=== PATIENT | male | born 1995 | race Caucasian/White ===

== ENCOUNTER 2022-05-04 07:26 | Emergency (ER) | payer SELFPAY ==
[2022-05-04] VITALS (7 sets, daily range): BP systolic 121–136; BP diastolic 70–84
[~2022-05-04] VITALS: Ht 190.5 cm; Wt 72.7 kg
[2022-05-04 08:45] LABS: ALBUMIN 4.6 g/dL (3.2-5.0); ALKALINE PHOSPHATASE 100 u/l (38-126); ANION GAP 16 (6-22 (CALC)); BILIRUBIN, TOTAL 1.4 mg/dL (0.0-1.4); BUN 12 mg/dL (9-20); BUN/CREATININE RATIO 15 (12-20 (CALC)); CARBON DIOXIDE 24 mmol/l (22-30); CHLORIDE 104 mmol/l (95-108); CREATININE 0.8 mg/dL (0.7-1.3); GFR FOR AFR.AMER. > 60 ML/MIN (>=60 (CALC)); GFR OTHER RACES > 60 ML/MIN (>=60 (CALC)); SGOT/AST 26 u/l (17-59); SODIUM 141 mmol/l (137-146)
[2022-05-04 08:53] LABS: HEMATOCRIT 40.8 % (39.0-50.0); HEMOGLOBIN 14.1 g/dl (14.0-18.0); IMMATURE GRANULOCYTES 0.1 % (0.0-5.0); MEAN CELL VOLUME 87.7 fL CALC (80.0-100.0); MEAN CORPUSCULAR HGB 30.3 pG CALC (26.0-32.0); MEAN CORPUSCULAR HGB CONC 34.6 g/dL CAL (32.0-36.0); NEUT# 8.53 thou/uL (1.82-7.42); RED BLOOD COUNT 4.65 mill/uL (4.70-6.10)
== END 2022-05-04 10:20 | disposition short-term general hospital (02) | DRG 563 ==
LOC: ED 07:26
PROVIDERS: Family Medicine
DX: S82.142A Displaced bicondylar fracture of left tibia, initial encounter for closed fracture (principal); W17.89XA Other fall from one level to another, initial encounter; Y93.51 Activity, roller skating (inline) and skateboarding; Z20.822 Contact with and (suspected) exposure to COVID-19

== ENCOUNTER 2022-05-07 11:34 | Emergency (ER) | payer SELFPAY ==
[~2022-05-07] VITALS: Ht 190.5 cm; Wt 75.0 kg
[2022-05-07 13:07] VITALS: BP 141/66
[2022-05-07 13:30] VITALS: BP 126/79
[2022-05-07] MEDS ORDERED: PERCOCET 5/321 COMBO PO (13:30)
[2022-05-07] MEDS ORDERED: NAPROXEN500 MG PO (13:30)
[2022-05-07 13:43] VITALS: BP 126/79
== END 2022-05-07 13:44 | disposition home or self-care (01) | DRG 561 ==
LOC: ED 11:34
DX: S82.142D Displaced bicondylar fracture of left tibia, subsequent encounter for closed fracture with routine healing (principal); F17.210 Nicotine dependence, cigarettes, uncomplicated; X58.XXXD Exposure to other specified factors, subsequent encounter; Z91.19 Patient's noncompliance with other medical treatment and regimen

== ENCOUNTER 2022-07-06 09:02 | Emergency (ER) | payer SELFPAY ==
[~2022-07-06 09:02] MED LIST: NAPROXEN500 MG PO; PERCOCET 5/321 COMBO PO
== END 2022-07-06 09:38 | disposition left against medical advice (07) | DRG 951 ==
LOC: ED 09:02 → LWOBS 09:38 → ED 09:38
DX: Z53.21 Procedure and treatment not carried out due to patient leaving prior to being seen by health care provider (principal)

== ENCOUNTER 2022-11-28 15:20 | Emergency (ER) | payer SELFPAY ==
[~2022-11-28] VITALS: Ht 190.5 cm; Wt 81.8 kg
[2022-11-28] VITALS (7 sets, daily range): BP systolic 127–132; BP diastolic 76–92
[2022-11-28 17:14] LABS: BASO% 0.5 % (0-3); EOS% 1.8 % (0-8); HEMOGLOBIN 13.7 g/dl (14.0-18.0); IMMATURE GRANULOCYTES 0.1 % (0.0-5.0); LYMPH% 27.9 % (15-41); MEAN CELL VOLUME 89.3 fL CALC (80.0-100.0); MEAN CORPUSCULAR HGB 29.8 pG CALC (26.0-32.0); MEAN CORPUSCULAR HGB CONC 33.4 g/dL CAL (32.0-36.0); MONO% 8.5 % (2-13); NEUT# 5.2 thou/uL (1.82-7.42); NEUT% 61.2 % (42-76); RED BLOOD COUNT 4.59 mill/uL (4.70-6.10); RED CELL DISTRI WIDTH 14.2 % (11.5-15.5)
[2022-11-28 17:26] LABS: ALBUMIN 4.6 g/dL (3.2-5.0); ALKALINE PHOSPHATASE 93 u/l (38-126); ANION GAP 16 (6-22 (CALC)); BUN 8 mg/dL (9-20); BUN/CREATININE RATIO 9 (12-20 (CALC)); CARBON DIOXIDE 23 mmol/l (22-30); CHLORIDE 108 mmol/l (95-108); CREATININE 0.8 mg/dL (0.7-1.3); GFR FOR AFR.AMER. > 60 ML/MIN (>=60 (CALC)); GFR OTHER RACES > 60 ML/MIN (>=60 (CALC)); POTASSIUM 3.6 mmol/l (3.5-5.1); SGOT/AST 32 u/l (17-59); SODIUM 144 mmol/l (137-146); TOTAL PROTEIN 7.7 g/dL (6.3-8.2)
[2022-11-28 17:27] LABS: BILIRUBIN, TOTAL 0.3 mg/dL (0.2-1.3)
[2022-11-28] MEDS ORDERED: ULTRAM50 MG PO (18:32)
== END 2022-11-28 19:14 | disposition home or self-care (01) | DRG 605 ==
LOC: ED 15:20
PROVIDERS: Family Medicine
DX: S00.83XA Contusion of other part of head, initial encounter (principal); F17.200 Nicotine dependence, unspecified, uncomplicated; Y04.2XXA Assault by strike against or bumped into by another person, initial encounter; Y92.410 Unspecified street and highway as the place of occurrence of the external cause

== ENCOUNTER 2023-04-30 13:08 | Emergency (ER) | payer SELFPAY ==
[2023-04-30] VITALS (17 sets, daily range): BP systolic 85–101; BP diastolic 39–56
[~2023-04-30] VITALS: Ht 188 cm; Wt 78.0 kg
[~2023-04-30 13:08] MED LIST changes: +METHOCARBAMOL500 MG PO; +ULTRAM50 MG PO
[2023-04-30 13:50] LABS: ALBUMIN 4.1 g/dL (3.2-5.0); ALKALINE PHOSPHATASE 93 u/l (38-126); BUN 11 mg/dL (9-20); BUN/CREATININE RATIO 12 (12-20 (CALC)); CHLORIDE 106 mmol/l (95-108); CREATININE 0.9 mg/dL (0.7-1.3); GFR FOR AFR.AMER. > 60 ML/MIN (>=60 (CALC)); GFR OTHER RACES > 60 ML/MIN (>=60 (CALC)); POTASSIUM 3.4 mmol/l (3.5-5.1); SGOT/AST 28 u/l (17-59); TOTAL PROTEIN 7.2 g/dL (6.3-8.2)
[2023-04-30 13:51] LABS: ANION GAP 13 (6-22 (CALC)); CARBON DIOXIDE 18 mmol/l (22-30); SODIUM 134 mmol/l (137-146)
[2023-04-30 13:52] LABS: BASO% 0.4 % (0-3); EOS% 0.6 % (0-8); HEMATOCRIT 40.1 % (39.0-50.0); HEMOGLOBIN 13.5 g/dl (14.0-18.0); IMMATURE GRANULOCYTES 0.1 % (0.0-5.0); LYMPH% 3.6 % (15-41); MEAN CELL VOLUME 90.3 fL CALC (80.0-100.0); MEAN CORPUSCULAR HGB 30.4 pG CALC (26.0-32.0); MEAN CORPUSCULAR HGB CONC 33.7 g/dL CAL (32.0-36.0); MONO% 11.4 % (2-13); NEUT# 5.81 thou/uL (1.82-7.42); NEUT% 83.9 % (42-76); RED BLOOD COUNT 4.44 mill/uL (4.70-6.10)
[2023-04-30] MEDS ORDERED: ZOFRAN4 MG/TAB PO (14:27)
[2023-04-30] MEDS ORDERED: PAXLOVID PO (14:27)
== END 2023-04-30 17:00 | disposition home or self-care (01) | DRG 179 ==
LOC: ED 13:08
PROVIDERS: Family Medicine
DX: U07.1 COVID-19 (principal); R52 Pain, unspecified; R51.9 Headache, unspecified; R53.83 Other fatigue; F17.200 Nicotine dependence, unspecified, uncomplicated

== ENCOUNTER 2023-09-08 01:05 | Emergency (ER) | payer SELFPAY ==
[~2023-09-08 01:05] MED LIST changes: +PAXLOVID PO; +ZOFRAN4 MG/TAB PO
== END 2023-09-08 02:00 | disposition left against medical advice (07) | DRG 951 ==
LOC: ED 01:05 → LWOBS 02:00
DX: Z53.21 Procedure and treatment not carried out due to patient leaving prior to being seen by health care provider (principal)

== ENCOUNTER 2024-08-21 09:45 | Emergency (ER) | payer SELFPAY ==
[2024-08-21] VITALS (9 sets, daily range): BP systolic 120–150; BP diastolic 80–98
[~2024-08-21] VITALS: Ht 188 cm; Wt 77.2 kg
[2024-08-21] MEDS ORDERED: Diph, Acellular Pertussis, Tet 0.5 ML/VIAL (Tdap) SDV IM ONE (10:00)
== END 2024-08-21 12:01 | disposition home or self-care (01) | DRG 605 ==
LOC: ED 09:45
DX: S80.812A Abrasion, left lower leg, initial encounter (principal); V09.9XXA Pedestrian injured in unspecified transport accident, initial encounter; Y92.410 Unspecified street and highway as the place of occurrence of the external cause
CPT/HCPCS: 90715

== ENCOUNTER 2024-10-11 11:15 | Emergency (ER) | payer SELFPAY ==
[~2024-10-11] VITALS: Ht 188 cm; Wt 74.8 kg
[2024-10-11] VITALS (15 sets, daily range): BP systolic 118–152; BP diastolic 78–102
[2024-10-11] MEDS ORDERED: SODIUM CHLORIDE 0.9% 1,000 ML IV ONE ×2 (11:25→12:10)
[2024-10-11 11:46] LABS: BASO% 0.4 % (0-3); EOS% 0.6 % (0-8); HEMATOCRIT 49.6 % (39.0-50.0); HEMOGLOBIN 16.8 g/dl (14.0-18.0); IMMATURE GRANULOCYTES 0.1 % (0.0-5.0); LYMPH% 16.7 % (15-41); MEAN CELL VOLUME 90.8 fL CALC (80.0-100.0); MEAN CORPUSCULAR HGB 30.8 pG CALC (26.0-32.0); MEAN CORPUSCULAR HGB CONC 33.9 g/dL CAL (32.0-36.0); MONO% 6.2 % (2-13); NEUT# 6.38 thou/uL (1.82-7.42); RED BLOOD COUNT 5.46 mill/uL (4.70-6.10); RED CELL DISTRI WIDTH 15.9 % (11.5-15.5)
[2024-10-11 11:46] LABS: URINE BLOOD DIPSTICK Trace-intact (NEGATIVE); URINE GLUCOSE - DIPSTICK Negative (NEGATIVE); URINE KETONE Negative (NEGATIVE); URINE LEUK ESTERASE Negative (NEGATIVE); URINE NITRITE - DIPSTICK Negative (Negative); URINE PROTEIN - DIPSTICK 100 mg/dL (NEG-TRACE); URINE SPECIFIC GRAVITY 1.025; URINE UROBILINOGEN - DIPSTICK 0.2 E.U./dL (0.2)
[2024-10-11 11:54] LABS: URINE COLOR Dark yellow
[2024-10-11 11:55] LABS: URINE EPITHELIAL CELLS MODERATE EPI/hpf (0-FEW); URINE MUCUS MANY hpf (NONE-FEW); URINE RBC 0-2 RBC/hpf (0-5)
[2024-10-11 12:05] LABS: BILIRUBIN, TOTAL 0.8 mg/dL (0.2-1.3); BUN 8 mg/dL (9-20); BUN/CREATININE RATIO 9 (12-20 (CALC)); CHLORIDE 104 mmol/l (95-108); CREATININE 0.9 mg/dL (0.7-1.3); ESTIMATED GFR 119 ML/MIN (>=90 (CALC)); ETHYL ALCOHOL 158 mg/dl (0-30); POTASSIUM 3.6 mmol/l (3.5-5.1); SGOT/AST 40 u/l (17-59); SODIUM 142 mmol/l (137-146); TOTAL PROTEIN 7.2 g/dL (6.3-8.2)
[2024-10-11] MEDS ORDERED: ONDANSETRON HCl 4 MG/2 ML SDV IV ONE (12:10)
[2024-10-11 12:18] LABS: ALKALINE PHOSPHATASE 208 u/l (38-126); ANION GAP 20 (6-22 (CALC)); CARBON DIOXIDE 22 mmol/l (22-30)
== END 2024-10-11 15:24 | disposition home or self-care (01) | DRG 897 ==
LOC: ED 11:15
PROVIDERS: Family Medicine
DX: F10.129 Alcohol abuse with intoxication, unspecified (principal); Y90.6 Blood alcohol level of 120-199 mg/100 ml; Z72.0 Tobacco use; M25.562 Pain in left knee
CPT/HCPCS: J2405